=== PATIENT | female | born 1975 | race African-American/Black ===

== ENCOUNTER → 2018-05-14 | Outpatient (CLI) | payer OTHER ==
--- NOTE | 2018-05-15 09:55 | RAD ---
MR#: [id number] Date of Study: 05/14/2018 Ordering Physician: MILLY FULLER, Referring Physician: MILLY FULLER, Tech: Malgorzata Hartman RDMS, RVT, RTR APPROVED REPORT Patient Location : OUT-PATIENT Indications Grayscale images of the bilateral greater saphenous and lesser saphenous veins do not demonstrate any evidence of thrombus. Spectral waveforms and color Doppler do not reveal any reflux bilaterally. The lesser saphenous veins also did not reveal any reflux bilaterally. A posterior accessory saphenous v ein is noted on the right side and this also does not reveal any significant reflux. The right great saphenous vein measures 7.9 mm and the left great saphenous vein measures 6.1 mm with all reflux time is less than one second. Critical Notification Critical Value: No <Conclusion> Negative for reflux in the bilateral greater and lesser saphenous veins Negative for reflux in the right posterior accessory saphenous vein Signed by : Julien Bernal, Electronically Approved : 05/15/2018 09:54:09
--- NOTE | 2018-05-15 10:50 | RAD ---
MR#: [id number] Date of Study: 05/14/2018 Ordering Physician: MILLY FULLER, Referring Physician: MILLY FULLER, Tech: Malgorzata Hartman RDMS, RVT, RTR APPROVED REPORT Bilateral Lower Extremity Venous Study for DVT Patient Location: OUT-PATIENT Indications The bilateral lower extremity deep veins were evaluated for thrombus with color Doppler, spectral and grayscale images. On the right the grayscale images of the common femoral, superficial femoral and popliteal veins do n ot demonstrate any evidence of thrombus and these veins appear to be compressible. The below-knee vei ns were not well visualized but grossly appear to be compressible. Spectral imaging and color Doppler do not reveal any evidence of obstruction to flow with normal respirophasic variation above the knee . Below the knee there is spontaneous flow noted. On the left, the grayscale images of the common femoral, superficial femoral and popliteal veins do n ot demonstrate any evidence of thrombus and these veins appear to be compressible. The below-knee vei ns again were not well visualized but grossly appear to be compressible. Spectral imaging and color D oppler do not reveal any evidence of obstruction to flow with normal respirophasic variation above th e knee. The below-knee veins demonstrate spontaneous flow. Critical Notification Critical Value: No <Conclusion> Negative for DVT in the bilateral lower extremities. Signed by : Julien Bernal, Electronically Approved : 05/15/2018 10:49:22
== END | disposition home or self-care (01) ==
LOC: US 07:56
PROVIDERS: ATTEND Internal Medicine Cardiovascular Disease
DX: R60.0 Localized edema (principal)
CPT/HCPCS: 93970

== ENCOUNTER → 2018-05-14 | Outpatient (CLI) | payer OTHER ==
--- NOTE | 2018-05-14 11:29 | CARD ---
MR#: [id number] Date of Study: 05/14/2018 Ordering Physician: MILLY FULLER, Referring Physician: MILYL FULLER Tech: Bia Hammonds RDCS APPROVED REPORT EXAM: Two-dimensional and M-mode echocardiogram with Doppler and color Doppler. Other Information Quality : GoodHR: 55bpm Rhythm : Bradycardia INDICATION Edema 2D DIMENSIONS RVDd2.0 (2.9-3.5cm)Left Atrium(2D)3.2 (1.6-4.0cm) IVSd0.9 (0.7-1.1cm)Aortic Root(2D)3.6 (2.0-3.7cm) LVDd4.9 (3.9-5.9cm)LVOT Diameter2.4 (1.8-2.4cm) PWd0.9 (0.7-1.1cm)LVDs3.1 (2.5-4.0cm) FS (%) 35.5 %SV71.5 ml LVEF(%)64.8 (>50%) M-Mode DIMENSIONS Left Atrium(MM)3.19 (2.5-4.0cm)Aortic Root3.62 (2.2-3.7cm) Aortic Valve AoV Peak Chaim.132.7cm/sAoV VTI26.7cm AO Peak GR.7.0mmHgLVOT Peak Chaim.111.0cm/s LVOT VTI 19.86cmAO Mean GR.4mmHg SHAYY (VMAX)3.58er9LOO (VTI)3.33cm2 Mitral Valve MV E Kzvscfmm59.7cm/sMV E Peak Gr.3mmHg MV DECEL [id number] A Oxbjgoha25.3cm/s MV E Mean Gr.1mmHgE/A Ratio1.2 MV A [id number] Pulmonary Valve PV Peak Hfjxopwr53.6cm/sPV Peak Grad.4mmHg Pulmonary Vein S1 Tqtwumnq70.8cm/sD2 Mrwntped34.7cm/s LEFT VENTRICLE The left ventricle is normal size. There is normal left ventricular wall thickness. The left ventricu lar systolic function is normal and the ejection fraction is within normal range. The Ejection Fracti on is 60-65%. There is normal LV segmental wall motion. The left ventricular diastolic function and f illing is normal for age. RIGHT VENTRICLE The right ventricle is normal size. There is normal right ventricular wall thickness. The right ventr icular systolic function is normal. ATRIA The left atrium size is normal. The right atrium size is normal. The interatrial septum is intact wit h no evidence for an atrial septal defect or patent foramen ovale as noted on 2-D or Doppler imaging. AORTIC VALVE The aortic valve is normal in structure and function. Doppler and Color Flow revealed no significant aortic regurgitation. There is no significant aortic valvular stenosis. MITRAL VALVE The mitral valve is normal in structure and function. There is no evidence of mitral valve prolapse. There is no mitral valve stenosis. Doppler and Color Flow revealed no mitral valve regurgitation note d. TRICUSPID VALVE The tricuspid valve is normal in structure and function. Doppler and Color Flow revealed no tricuspid valve regurgitation noted. There is no tricuspid valve prolapse or vegetation. There is no tricuspid valve stenosis. PULMONIC VALVE Doppler and Color Flow revealed no pulmonic valvular regurgitation. There is no pulmonic valvular pradeep nosis. GREAT VESSELS The aortic root is borderline enlarged. The ascending aorta is normal in size. PERICARDIAL EFFUSION There is no evidence of significant pericardial effusion. Fat pad noted. Critical Notification Critical Value: No <Conclusion> The left ventricular systolic function is normal and the ejection fraction is within normal range. Th e Ejection Fraction is 60-65%. There is normal LV segmental wall motion. Signed by : Julien Bernal, Electronically Approved : 05/14/2018 11:28:34
== END | disposition home or self-care (01) ==
LOC: ECHO 07:58
PROVIDERS: ATTEND Internal Medicine Cardiovascular Disease
DX: R06.09 Other forms of dyspnea (principal); R60.0 Localized edema
CPT/HCPCS: 93306